=== PATIENT | female | born 2000 | race Caucasian/White ===

== ENCOUNTER 2018-09-19 18:59 | Emergency (ER) | payer OTHER, MEDICAID, SELFPAY ==
[2018-09-19 19:06] VITALS: BP 115/79; PULSE 88; RESP 20; TEMP 36.6; O2SAT 100
--- NOTE | 2018-09-19 19:37 | ED.ABDPAIN ---
HPI - Abdominal Pain General Chief Complaint: Abdominal Pain Stated Complaint: IUD COMPLICATIONS Time Seen by Provider: 09/19/18 19:36 Source: patient Mode of arrival: ambulatory Limitations: no limitations History of Present Illness HPI narrative: 18-year-old female here for evaluation of 2 days of vaginal spotting and pelvic pain. She is concerned about whether not her IUD has moved. She has had the IUD in place for approximately 9 months. She did state that she had sexual intercourse just prior to these events happening. She states she has not had a menstrual cycle since the IUD was placed. No urinary symptoms no bowel symptoms. Review of Systems Constitutional Denies fever(s) and Denies headache(s) ENT Ears, Nose, Mouth, and Throat: Denies vertigo and Denies headache(s) Cardiovascular Denies chest pain and Denies dyspnea Respiratory Denies dyspnea Gastrointestinal Gastrointestinal: Reports abdominal pain, Denies nausea and Denies vomiting Genitourinary Denies dysuria, Denies urinary incontinence, Denies urinary hesitancy, Denies urinary urgency, Reports vaginal discharge ( Spotting) and Denies vaginal dryness Musculoskeletal Denies myalgias and Denies arthralgias Integumentary/Breasts Denies lesions and Denies rash Neurologic Denies vertigo and Denies headache(s) Hematologic/Lymphatic Comments: not on anticoagulation PFSH Medical History Healthy adult (Acute) Surgical History No pertinent past surgical history (Acute) Social History marital status: Smoking Status: Current every day smoker Exam Initial Vital Signs Initial Vital Signs: Vital Signs Temperature 97.9 F 09/19/18 19:06 Pulse Rate 88 09/19/18 19:06 Respiratory Rate 20 09/19/18 19:06 Blood Pressure 115/79 09/19/18 19:06 Pulse Oximetry 100 09/19/18 19:06 Const General: cooperative, healthy appearing, comfortable, well developed, well groomed and No acute distress Orientation: alert, awake and oriented x3 HENMT Head: normal to inspection and normocephalic Resp Effort & Inspection: normal respiratory effort Auscultation: clear to auscultation bilaterally Cardio Rate: regular rate Rhythm: regular rhythm GI Inspection: non-distended Palpation: soft, No firm and No tender Back/Spine/Pelvis Back: No CVA tenderness Skin Lesions: no lesions Rashes: no rashes Neuro General: alert, awake and oriented x3 Extrem General: normal to inspection Right upper extremity: normal to inspection Psych Appearance: grossly normal and well kempt Course Orders Ordered: ED Orders 09/19/18 19:39 US pelvic complete Stat Vital Signs - 8 hr 09/19/18 19:06 09/19/18 20:28 09/19/18 21:30 Temperature 97.9 F Pulse Rate 88 89 81 Respiratory Rate 20 16 14 Blood Pressure 115/79 Blood Pressure [Left Arm] 110/67 112/68 Pulse Oximetry 100 99 100 MDM - Abdominal Pain Lab Data Point of care testing: Point of Care Testing Test Results Negative Urine Dip Bedside Urine Glucose Negative Bedside Urine Bilirubin - Negative Bedside Urine Ketone - Negative Urine Specific [place] 1.015 Bedside Urine Occult Blood +++ Bedside Urine pH 8.0 Bedside Urine Protein - Negative Bedside Urine Urobilinogen +/- 1mg Bedside Urine Nitrite - Negative Bedside Urine Leukocytes - Negative Esterase Imaging Data US - abdomen: Radiologist's impression: [address] [address] Ultrasound Report Signed Patient: SCOTTIE MOSHER RMR#: [id number] : 2000Acct:[id number] Age/Sex: FDate of Service: 09/19/18 Loc: ED Accession Number: [id number] Procedure: US pelvic complete Ordering Provider: Gerry Newton D.O. PROCEDURE: US PELVIC COMPLETE INDICATIONS: Vaginal bleeding and pain TECHNIQUE: Real-time scanning was performed of the pelvic organs, with image documentation. Additional endovaginal scanning was necessary due to incomplete visualization of the adnexal and endometrial structures by transabdominal scanning. COMPARISON: None. FINDINGS: Transabdominal scanning: Limited scanning through the kidneys shows no hydronephrosis. No pathologic free abdominal or pelvic fluid. The appendix was not discretely visualized. Endovaginal scanning: Uterus: Uterus is normal in size at 6.7 x 2.7 x 4.4 cm. The endometrium measures 3 mm in combined thickness. An IUD is demonstrated extending into the fundal endometrium. Ovaries: The right ovary measures 3.4 x 2.2 x 2.9 cm and the left ovary measures 5.2 x 1.6 x 1.8 cm. There is patent arterial flow demonstrated in the right and left ovaries. No adnexal masses. IMPRESSION: 1. IUD demonstrated in appropriate position extending into the fundal endometrium. Dictated by: Milan Parish M.D. on 09/19/2018 at 21:26 Approved by: Milan Parish M.D. on 09/19/2018 at 21:47 [facility] Narrative Medical decision making narrative: patient with a benign exam here in the emergency department. Ultrasound shows IUD is in place. test is negative. Urine shows blood but this is not unexpected because of the vaginal bleeding that she is having. Discussed all this with the patient. She has no concern for sexually transmitted infections. Will hold on further workup for now. Patient was given return precautions. She expressed understanding and agreement with plan Discharge Plan Departure Patient Disposition: Home Clinical Impression: Vaginal bleeding, Pelvic pain Instructions: DI for Pelvic Pain Activity Restrictions/Additional Instructions: call your primary care doctor for a follow-up. Return to the emergency department for any new or worsening symptoms
[2018-09-19 20:28] VITALS: BP 110/67; PULSE 89; RESP 16; O2SAT 99
[2018-09-19 21:30] VITALS: BP 112/68; PULSE 81; RESP 14; O2SAT 100
== END 2018-09-19 22:29 | disposition home or self-care (01) ==
PROVIDERS: Emergency Provider Emergency Medicine
DX: R10.2 Pelvic and perineal pain (principal); N93.9 Abnormal uterine and vaginal bleeding, unspecified
CPT/HCPCS: 76830; 76856; 81003; 81025; 99282; 99284